=== PATIENT | female | born 1975 | race Caucasian/White ===

== ENCOUNTER 2017-12-04 19:45 | Emergency (ER) | payer BC, SELFPAY ==
[2017-12-04 19:55] VITALS: O2SAT 98
[2017-12-04] MEDS ORDERED: MORPHINE SULFATE 10 MG/ML IM ONE (20:15)
[2017-12-04] MEDS ORDERED: Phenergan 25 MG INJ IM ONE (20:15)
[2017-12-04] MEDS ORDERED: Phenergan 25 MG INJ ONE (20:32)
[2017-12-04] MEDS ORDERED: MORPHINE SULFATE 10 MG/ML ONE (20:33)
[2017-12-04] MEDS ORDERED: Zofran 4 MG/2 ML VIAL IV ONE (20:58)
[2017-12-04] MEDS ORDERED: MORPHINE SULFATE 4 MG INJ IV ONE (20:59)
--- NOTE | 2017-12-04 21:48 | ERPHSYRPT ---
- History of Present Illness Time Seen by Provider: 12/04/17 20:10 Source: patient Patient Subjective Stated Complaint: Left Knee Pain Triage Nursing Assessment: Pt presents to the ED with complaints of left knee pain and fall. Pt states she was on med-surg unit in hospital when she fell. PT states she stood up, left knee popped and "gave out." Pt denies hx of complaints. No deformity noted, skin PWD. Pt denies LOC, denies other pain or complaints from fall. Physician History: PATIENT STATES WHILE STANDING HER LEFT KNEE GAVE OUT, FELL TO FLOOR ONTO BUTTOCKL, DENIES ASSOCIATED HEAD, NECK OR BACK PAIN. HAS SEVERE KNEE PAIN. DENIES FALLING ONTO KNEE. Method of Injury: fell Occurred: just prior to arrival Quality: constant Severity of Pain-Max: moderate Severity of Pain-Current: moderate Lower Extremities Pain: knee: left Modifying Factors: Improves With: movement Associated Symptoms: unable to bear weight Allergies/Adverse Reactions: No Known Drug Allergies Allergy (Unverified 03/19/14 15:38) Hx Tetanus, Diphtheria Vaccination/Date Given: No Hx Influenza Vaccination/Date Given: No Hx Pneumococcal Vaccination/Date Given: No Immunizations Up to Date: No - Review of Systems Constitutional: No Fever, No Chills Musculoskeletal: Injury, Joint Pain - Past Medical History Pertinent Past Medical History: No Neurological History: No Pertinent History ENT History: No Pertinent History Cardiac History: No Pertinent History Respiratory History: No Pertinent History Endocrine Medical History: Other Musculoskeletal History: No Pertinent History GI Medical History: No Pertinent History History: No Pertinent History Psycho-Social History: No Pertinent History Female Reproductive Disorders: Other Other Medical History: POLYCYSTIC DISEASE. INSULIN RESISTANCE DIABETES - Past Surgical History Past Surgical History: Yes Neuro Surgical History: No Pertinent History Cardiac: No Pertinent History Respiratory: No Pertinent History Gastrointestinal: Appendectomy Genitourinary: No Pertinent History Musculoskeletal: No Pertinent History Female Surgical History: No Pertinent History, Tubal Ligation Other Surgical History: TONSILECTOMY - Social History Smoking Status: Never smoker Exposure to second hand smoke: No Drug Use: none Patient Lives Alone: No - Female History Hx Last Menstrual Period: 11/27/2017 Hx Now: No - Nursing Vital Signs Nursing Vital Signs: Initial Vital Signs Temperature 97.6 F 12/04/17 19:51 Pulse Rate 92 H 12/04/17 19:51 Respiratory Rate 98 H 12/04/17 19:51 Blood Pressure 145/69 12/04/17 19:51 O2 Sat by Pulse Oximetry 98 12/04/17 19:51 Pain Scale Pain Intensity 7 - Physical Exam General Appearance: mild distress Knees Exam: left knee: joint effusion, soft tissue tenderness (OVER MEDIAL AND LATERAL FEMORAL CONDYLE), other (LIMITED RANGE OF MOTION, NEGATIVE ANTERIOR DRAW SIGN.) Neuro/Tendon Exam: normal sensation SpO2: 98 Oxygen Delivery: Room Air - Radiology Exams Left Knee X-ray Interpretation: Negative, No Fracture (NO DISLOCATION) Ordered Tests: Active Orders 24 hr Category Date Time Status Crutches STAT Care 12/04/17 20:16 Active KNEE (3 VIEWS) Stat Exams 12/04/17 20:37 Taken Medication Summary Discontinued Medications Generic Name Dose Route Start Last Admin Trade Name Freq PRN Reason Stop Dose Admin Morphine Sulfate 8 mg 12/04/17 20:15 12/04/17 20:37 Morphine Sulfate 10 Mg/Ml IM 12/04/17 20:16 8 mg STAT ONE Administration Morphine Sulfate Confirm 12/04/17 20:33 Morphine Sulfate 10 Mg/Ml Administered 12/04/17 20:34 Dose 10 mg .ROUTE .STK-MED ONE Morphine Sulfate 4 mg 12/04/17 20:59 Morphine Sulfate 4 Mg Inj IV 12/04/17 21:00 STAT ONE Ondansetron HCl 4 mg 12/04/17 20:58 Zofran 4 Mg/2 Ml Vial IV 12/04/17 20:59 STAT ONE Promethazine HCl 25 mg 12/04/17 20:15 12/04/17 20:37 Phenergan 25 Mg Inj IM 12/04/17 20:16 25 mg STAT ONE Administration Promethazine HCl Confirm 12/04/17 20:32 Phenergan 25 Mg Inj Administered 12/04/17 20:33 Dose 25 mg .ROUTE .STK-MED ONE - Progress Progress: improved Progress Note: 12/04/17 21:46 ADMINISTERED MORPHINE 8MG/PHENERGAIN 25MG IM - Departure Time of Disposition: 21:50 Departure Disposition: Home Clinical Impression: INTERDERANGEMENT LEFT KNEE Condition: Stable Critical Care Time: No Referrals: BLANCA HOOK [Primary Care Provider] - Additional Instructions: AMBULATE USING CRUTCHES NONWEIGHT BEARING LEFT LEG UNTIL EVALUATED BY PRIMARY CARE PROVIDER. TAKE OVER THE COUNTER MOTRIN FOR PAIN EVERY 6 HOURS NEEDED. NORCO 10/325 EVERY 4 HOURS FOR SEVERE PAIN. APPLY ICE OVER KNEE SWELLING EVERY 4 HOURS, 30 MINUTES FOR 48 HOURS. Prescriptions: Hydrocodone/APAP 10/325 mg [Surveyor 10/325 MG Tablet] 1 tab PO Q4H PRN PRN # 15 tablet MDD 4 PRN Reason: Pain
[2017-12-04 22:18] VITALS: BP 141/86; PULSE 74
--- NOTE | 2017-12-05 08:53 | XRAY ---
Indication: Pain following fall. Comparison: None 3 views of the left knee obtained. No bony, articular, or soft tissue abnormalities.
== END 2017-12-04 22:20 | disposition home or self-care (01) ==
LOC: ED 19:45
DX: M23.92 Unspecified internal derangement of left knee (principal); W18.39XA Other fall on same level, initial encounter
CPT/HCPCS: 73562; 96372; 99284; J2270; J2550

== ENCOUNTER 2017-12-17 17:34 | Observation (INO) | payer BC, SELFPAY ==
[2017-12-17] MEDS ORDERED: BABY ASPIRIN 81 MG CHEW PO ONE (17:45)
[2017-12-17] MEDS ORDERED: NITRO-BID 2% UD PACKETS TOP ONE (17:45)
[2017-12-17] MEDS ORDERED: Pepcid 20 MG VIAL IV ONE ×2 (17:45→18:01)
[2017-12-17 17:54] LABS: BASOPHIL % 0.3 % (0.0-0.4); Basophil (Absolute #) 0.05 (0-0.4); Eosinophil % 1.7 % (0.00-5.0); Eosinophil (Absolute #) 0.27 (0-0.5); Granulocytes % 66.8 % (36.0-66.0); Hematocrit 42.7 % (35-47); Lymphocyte (Absolute #) 3.87 (1.0-4.6); Lymphocytes % 24.2 % (24.0-44.0); Mean Cell Volume 88.6 fl (78-100); Mean Corpuscular Hgb Concent. 32.8 g/dl (32-36); Mean Platelet Volume 10.7 fl (6-9.5); Monocyte (Absolute #) 1.12 (0.0-1.3); Platelet Count 384 K/mm3 (150-450); Red Blood Count 4.82 M/mm3 (4.1-5.4); Red Cell Distribution Width 13.7 % (11.5-14.0)
[2017-12-17] MEDS ORDERED: NITRO-BID 2% UD PACKETS ONE ×2 (18:00→18:01)
[2017-12-17] MEDS ORDERED: BABY ASPIRIN 81 MG CHEW ONE (18:00)
[2017-12-17 18:13] LABS: ALKALINE PHOSPHATASE 172 U/L (38-126); ANION GAP 14.3 MEQ/L (5-15); BLOOD UREA NITROGEN 16 mg/dL (7-17); CHLORIDE 102 mmol/L (98-107); Carbon Dioxide 27 mmol/L (22-30); Creatinine 1 0.85 mg/dL (0.52-1.04); Glucose 130 mg/dL (74-106); Potassium 3.8 mmol/L (3.5-5.1); SGOT/AST 27 U/L (14-36); SGPT/ALT 32 U/L (0-35); SODIUM 139 mmol/L (137-145); Total Protein 6.9 g/dL (6.3-8.2)
--- NOTE | 2017-12-17 18:16 | ERPHSYRPT ---
- History of Present Illness Time Seen by Provider: 12/17/17 17:40 Historian: patient, family () Patient Subjective Stated Complaint: pt reports she was riding in a car and began having chest pain radiaitng to shoulder and jaw-reprots nasuea-denies diaphoresis-reports weakness Triage Nursing Assessment: pt arrived pink warm and [id number] easy and nonlabored-lungs clear-left radial pulse regular and strong Physician History: CC: chest pain Hx: 42 y/o patient of Dr Bee. She was riding in car and had chest pain, tightness, shortness of breath, nausea, sweat, and pain radiating ot her jaw and elbow. The pain is gone now. She has recent indigestion. She had prior tilt table testing. She had abnl EKG but did not know type. No hx of CAD. She is wearing a brace on her left leg after a fall. She took T#3 last night. Pain is now gone. ILL: Insulin resistance, PCO Surg: Tonsils, BTl with LMP 3 weeks ago ALL: None Meds: None Social: Nonsmoker Fam: Grandparents 40, 50's CAD Timing/Duration: today Aspirin Treatment Today: provided by ED Allergies/Adverse Reactions: No Known Drug Allergies Allergy (Verified 12/17/17 17:41) Home Medications: No Reportable Medications [No Reported Medications] 12/17/17 [History] Hx Tetanus, Diphtheria Vaccination/Date Given: No Hx Influenza Vaccination/Date Given: No Hx Pneumococcal Vaccination/Date Given: No Immunizations Up to Date: Yes - Review of Systems Constitutional: Fatigue, Malaise, No Fever, No Chills Eyes: No Symptoms Ears, Nose, & Throat: No Symptoms Respiratory: Dyspnea, No Cough Cardiac: Chest Pain Abdominal/Gastrointestinal: Nausea, No Abdominal Pain, No Vomiting, No Diarrhea Genitourinary Symptoms: No Symptoms Musculoskeletal: No Symptoms Skin: No Rash Neurological: No Headache All Other Systems: Reviewed and Negative - Past Medical History Pertinent Past Medical History: No Neurological History: No Pertinent History ENT History: No Pertinent History Cardiac History: No Pertinent History Respiratory History: No Pertinent History Endocrine Medical History: Other Musculoskeletal History: No Pertinent History GI Medical History: No Pertinent History History: No Pertinent History Psycho-Social History: No Pertinent History Female Reproductive Disorders: Other Other Medical History: POLYCYSTIC DISEASE. INSULIN RESISTANCE DIABETES - Past Surgical History Past Surgical History: Yes Neuro Surgical History: No Pertinent History Cardiac: No Pertinent History Respiratory: No Pertinent History Gastrointestinal: Appendectomy Genitourinary: No Pertinent History Musculoskeletal: No Pertinent History Female Surgical History: No Pertinent History, Tubal Ligation Other Surgical History: TONSILECTOMY - Social History Smoking Status: Never smoker Exposure to second hand smoke: No Drug Use: none Patient Lives Alone: No - Female History Hx Last Menstrual Period: 3 wks ago Hx Now: No - Nursing Vital Signs Nursing Vital Signs: Initial Vital Signs Temperature 98.1 F 12/17/17 17:35 Pulse Rate 78 12/17/17 17:35 Respiratory Rate 18 12/17/17 17:35 Blood Pressure 178/94 12/17/17 17:35 O2 Sat by Pulse Oximetry 98 12/17/17 17:35 Pain Scale Pain Intensity 3 - Physical Exam General Appearance: alert, obese Eye Exam: PERRL/EOMI Ears, Nose, Throat Exam: normal ENT inspection, moist mucous membranes Neck Exam: normal inspection, non-tender, supple Respiratory Exam: normal breath sounds, lungs clear Cardiovascular Exam: regular rate/rhythm, No murmur Gastrointestinal/Abdomen Exam: soft, No tenderness, No distention Extremity Exam: other (left leg brace) Neurologic Exam: alert, oriented x 3, cooperative, sensation nml, No motor deficits Skin Exam: warm, dry, No rash SpO2 Interpretation: normal SpO2: 99 Oxygen Delivery: Room Air - Course Nursing assessment & vital signs reviewed: Yes EKG Interpreted by Me: RATE (86), Sinus Rhythm, Left Bundle Branch Block (age uncertain) - Radiology Exams cxr X-ray Interpretation: Reviewed by me (lobular heart, no consolidation) - CT Exams CTA chest CT Interpretation: Tele-radiologist Report (no pe, no TAD) Ordered Tests: Active Orders 24 hr Category Date Time Status Flash Welder STAT Care 12/17/17 17:45 Active EKG-ER Only STAT Care 12/17/17 17:45 Active EKG-ER Only STAT Care 12/17/17 18:35 Active IV Insertion STAT Care 12/17/17 17:45 Active Pulse Oximetry (ED) STAT Care 12/17/17 17:45 Active CHEST 1 VIEW (PORTABLE) Stat Exams 12/17/17 17:45 Taken CHEST WITH CONTRAST [CT] Stat Exams 12/17/17 18:35 Taken CBC W DIFF Stat Lab 12/17/17 17:45 Completed CMP Stat Lab 12/17/17 17:45 Completed D-DIMER QUANTITATION Stat Lab 12/17/17 17:45 Completed HCG QUALITATIVE,SERUM Stat Lab 12/17/17 17:45 Completed LIPASE Stat Lab 12/17/17 17:45 Completed TROPONIN Q3H Lab 12/17/17 17:45 Completed TROPONIN Q3H Lab 12/17/17 20:30 Received TROPONIN Q3H Lab 12/17/17 23:45 Ordered TROPONIN Q3H Lab 12/18/17 02:45 Ordered TROPONIN Q3H Lab 12/18/17 05:45 Ordered Transfer Order Routine Transfer 12/17/17 Ordered Medication Summary Discontinued Medications Generic Name Dose Route Start Last Admin Trade Name Freq PRN Reason Stop Dose Admin Aspirin 162 mg 12/17/17 17:45 12/17/17 18:08 Baby Aspirin 81 Mg Chew PO 12/17/17 17:46 162 mg STAT ONE Administration Aspirin Confirm 12/17/17 18:00 Baby Aspirin 81 Mg Chew Administered 12/17/17 18:01 Dose 162 mg .ROUTE .STK-MED ONE Famotidine 20 mg 12/17/17 17:45 12/17/17 18:04 Pepcid 20 Mg Vial IV 12/17/17 17:46 20 mg STAT ONE Administration Famotidine Confirm 12/17/17 18:01 Pepcid 20 Mg Vial Administered 12/17/17 18:02 Dose 20 mg IV .STK-MED ONE Nitroglycerin 1 gm 12/17/17 17:45 12/17/17 18:04 Nitro-Bid 2% Ud Packets TOP 12/17/17 17:46 1 gm STAT ONE Administration Nitroglycerin Confirm 12/17/17 18:00 Nitro-Bid 2% Ud Packets Administered 12/17/17 18:01 Dose 1 gm .ROUTE .STK-MED ONE Nitroglycerin Confirm 12/17/17 18:01 Nitro-Bid 2% Ud Packets Administered 12/17/17 18:02 Dose 1 gm .ROUTE .STK-MED ONE Lab/Rad Data: Laboratory Result Diagrams 12/17/17 17:45 12/17/17 17:45 Laboratory Results 0312/17/17 12/17/17 Range/Units 17:45 17:45 17:45 WBC (4.0-10.5) K/mm3 RBC (4.1-5.4) M/mm3 Hgb (12.0-16.0) gm/dl Hct (35-47) % MCV (78-100) fl MCH (26-32) pg MCHC (32-36) g/dl RDW (11.5-14.0) % Plt Count (150-450) K/mm3 MPV (6-9.5) fl Gran % (36.0-66.0) % Lymphocytes % (24.0-44.0) % Monocytes % (0.0-12.0) % Eosinophils % (0.00-5.0) % Basophils % (0.0-0.4) % Basophils # (0-0.4) D-Dimer 596.56 H* (215-500) ng/mL Sodium (137-145) mmol/L Potassium (3.5-5.1) mmol/L Chloride (98-107) mmol/L Carbon Dioxide (22-30) mmol/L Anion Gap (5-15) MEQ/L BUN (7-17) mg/dL Creatinine (0.52-1.04) mg/dL Estimated GFR ML/MIN Glucose (74-106) mg/dL Calcium (8.4-10.2) mg/dL Total Bilirubin (0.2-1.3) mg/dL AST (14-36) U/L ALT (0-35) U/L Alkaline Phosphatase (38-126) U/L Troponin I (0.000-0.034) ng/mL Serum Total Protein (6.3-8.2) g/dL Albumin (3.5-5.0) g/dL Lipase 63 (23-300) U/L Serum , Qual NEGATIVE (Negative) 12/17/17 12/17/17 12/17/17 Range/Units 17:45 17:45 17:45 WBC 16.0 H (4.0-10.5) K/mm3 RBC 4.82 (4.1-5.4) M/mm3 Hgb 14.0 (12.0-16.0) gm/dl Hct 42.7 (35-47) % MCV 88.6 (78-100) fl MCH 29.0 (26-32) pg MCHC 32.8 (32-36) g/dl RDW 13.7 (11.5-14.0) % Plt Count 384 (150-450) K/mm3 MPV 10.7 H (6-9.5) fl Gran % 66.8 H (36.0-66.0) % Lymphocytes % 24.2 (24.0-44.0) % Monocytes % 7.0 (0.0-12.0) % Eosinophils % 1.7 (0.00-5.0) % Basophils % 0.3 (0.0-0.4) % Basophils # 0.05 (0-0.4) D-Dimer (215-500) ng/mL Sodium 139 (137-145) mmol/L Potassium 3.8 (3.5-5.1) mmol/L Chloride 102 (98-107) mmol/L Carbon Dioxide 27 (22-30) mmol/L Anion Gap 14.3 (5-15) MEQ/L BUN 16 (7-17) mg/dL Creatinine 0.85 (0.52-1.04) mg/dL Estimated GFR > 60 ML/MIN Glucose 130 H (74-106) mg/dL Calcium 11.0 H (8.4-10.2) mg/dL Total Bilirubin 0.20 (0.2-1.3) mg/dL AST 27 (14-36) U/L ALT 32 (0-35) U/L Alkaline Phosphatase 172 H (38-126) U/L Troponin I < 0.012 (0.000-0.034) ng/mL Serum Total Protein 6.9 (6.3-8.2) g/dL Albumin 4.0 (3.5-5.0) g/dL Lipase (23-300) U/L Serum , Qual (Negative) - Progress Progress Note: 12/17/17 18:36 No pain. Will repeat EKG. D-dimer elevated and she has risk of PE with obesity, left leg immobilzation. Will get CTA to rule out PE. 12/17/17 20:42 Pt is stable. BP better on NTG paste. She has seen UAP cards in past. Called Dr Bry Castro who reviewed EKG. 2nd troponin pending. If positive he will transfer to . If negative she will stay here for chest pain observation and rule out. Called Dr Melodie Lowry. Discussed with : Delfin Will see patient in: hospital (observation) Counseled pt/family regarding: lab results, diagnosis, need for follow-up, rad results - Departure Time of Disposition: 20:43 Departure Disposition: Observation (Tele) Clinical Impression: Chest pain, rule out acute myocardial infarction, LBBB (left bundle branch block) Condition: Fair Critical Care Time: No
--- NOTE | 2017-12-17 21:25 | XRAY ---
Indication: Chest pain. Comparison: November 08, 2007. Portable chest slightly rotated demonstrating again normal heart and lungs. Bony thorax intact. Same day CT proven hiatal hernia.
--- NOTE | 2017-12-17 21:34 | XRAY ---
Indication: Chest pain. Elevated d-dimer. Multiple contiguous axial images obtained through the chest using 80 cc Isovue 370 contrast and PE protocol. Comparison: None There is satisfactory opacification of the pulmonary arteries to include the lobar and segmental branches. No filling defect or pulmonary embolus. Heart is not enlarged. Aorta is normal in course and caliber. A few tiny mediastinal calcified nodes. No pathologic mediastinal/hilar lymphadenopathy. 5 mm left thyroid nodule/cyst. Moderate size hiatal hernia with partial intrathoracic stomach. Examination of the lung parenchyma hyperinflated. No suspicious pulmonary mass, infiltrate, or effusion. Bony thorax intact. Limited upper abdomen demonstrate mild fatty liver and 12.5 cm borderline splenomegaly. Impression: 1. Negative pulmonary embolus. No acute cardiopulmonary abnormalities. 2. Hiatal hernia with partial intrathoracic stomach. 3. Left thyroid nodule/cyst better evaluated with sonogram if clinically warranted. 4. Fatty liver and borderline splenomegaly. Comment: Preliminary interpretation was made by [facility]. No discrepancy. CTDI 23.69
[2017-12-17] MEDS ORDERED: MAALOX ES 30 ML UNIT DOSE PO PRN (22:51)
[2017-12-17] MEDS ORDERED: Zofran 4 MG/2 ML VIAL IV PRN (22:51)
[2017-12-17] MEDS ORDERED: Pepcid 20 MG PO SCH (22:51)
[2017-12-17] MEDS ORDERED: MILK OF MAGNESIA 30 ML PO PRN (22:51)
[2017-12-17] MEDS ORDERED: NITRO-BID 2% UD PACKETS TOP SCH (22:51)
[2017-12-17] MEDS ORDERED: Senokot-S Tablet PO PRN (22:51)
[2017-12-17] MEDS: TYLENOL 325 MG PO PRN (22:56)
[2017-12-18 00:27] LABS: Risk Ratio 3.5
[2017-12-18] MEDS: TYLENOL 325 MG PO PRN (03:01)
--- NOTE | 2017-12-18 09:45 | PCM.HP ---
History of Present Illness - Chief Complaint Chief Complaint: cp Date: 12/18/17 History of Present Illness: is a 42 year old female. began having sudden onset substernal chest pain radiating to her left jaw. It resolved after aspirin and nitro in ED. She did then experience some pain with swallowing today. She has history of GERD and takes otc Prilosec most days. She has never had endoscopy. She hurt her left knee and has been following with ortho and wearing knee immobilizer she has swelling in the left leg and pain in the calf as well at times when she is on it. - Review of Systems Constitutional: No Fever, No Chills Eyes: No Symptoms Ears, Nose, & Throat: No Symptoms Respiratory: No Cough, No Short Of Breath Cardiac: Chest Pain, No Edema, No Syncope Abdominal/Gastrointestinal: No Abdominal Pain, No Nausea, No Vomiting, No Diarrhea Genitourinary Symptoms: No Dysuria Musculoskeletal: No Back Pain, No Neck Pain Skin: No Rash Neurological: No Dizziness, No Focal Weakness, No Sensory Changes Psychological: No Symptoms Endocrine: No Symptoms Hematologic/Lymphatic: No Symptoms Immunological/Allergic: No Symptoms Medications & Allergies Home Medications: Home Medication List Aspirin EC 81 mg [Ecotrin 81 mg] 81 mg PO DAILY #30 tablet.ec 12/18/17 [Rx ] Hydrocodone/Acetaminophen [Hydrocodone-Acetamin 10-325 mg] 1 tab PO Q4HPRN PRN 12/18/17 [History Confirmed 12/18/17] PANTOPRAZOLE 40 mg Tablet [Protonix 40MG Tablet] 40 mg PO QAM #30 tab [Rx] Allergies/Adverse Reactions: Allergies Allergy/AdvReac Type Severity Reaction Status Date / Time No Known Drug Allergies Allergy Verified 12/18/17 01:30 - Past Medical History Past Medical History: Yes Neurological History: No Pertinent History ENT History: No Pertinent History Cardiac History: No Pertinent History, Other Respiratory History: No Pertinent History Endocrine Medical History: Other Musculoskelatal History: No Pertinent History GI Medical History: No Pertinent History History: No Pertinent History Pyscho-Social History: No Pertinent History Reproductive Disorders: Other Comment: POLYCYSTIC ovary DISEASE. INSULIN RESISTANCE DIABETES. left leg questionable torn ligament - using a splint. pt states that she was dx with a heart arrhythmia (unsure what type) about 13-14 years ago - Female History Hx Last Menstrual Period: 3 weeks ago Are you now?: No - Past Surgical History Past Surgical History: Yes Neuro Surgical History: No Pertinent History Cardiac History: No Pertinent History Respiratory Surgery: No Pertinent History GI Surgical History: Appendectomy Genitourinary Surgical Hx: No Pertinent History Musculskeletal Surgical Hx: No Pertinent History Female Surgical History: No Pertinent History, Tubal Ligation Other Surgical History: . - Social History Smoking Status: Never smoker Exposure to second hand smoke: Yes (as child) Alcohol: None Drug Use: none - Physical Exam Vital Signs: Vital Signs - 24 hr Temp Pulse Pulse Resp BP Pulse Ox 12/18/17 07:15 98 F 64 16 110/68 97 12/18/17 04:00 97.8 F 71 16 106/51 97 12/17/17 23:19 97.8 F 84 18 119/64 96 12/17/17 22:27 78 18 102/62 100 12/17/17 21:42 89 18 103/72 98 12/17/17 20:43 99 12/17/17 19:45 88 16 150/84 98 12/17/17 18:55 80 18 99 12/17/17 18:27 76 18 173/107 98 12/17/17 18:01 99 12/17/17 17:35 98.1 F 83 78 18 178/94 98 General Appearance: no apparent distress, alert, obese Neurologic Exam: alert, oriented x 3, cooperative, normal mood/affect, nml cerebellar function, nml station & gait, sensation nml, No motor deficits Eye Exam: PERRL/EOMI, eyes nml inspection Ears, Nose, Throat Exam: normal ENT inspection, TMs normal, pharynx normal, moist mucous membranes Neck Exam: normal inspection, non-tender, supple, full range of motion Respiratory Exam: normal breath sounds, lungs clear, No respiratory distress Cardiovascular Exam: regular rate/rhythm, normal heart sounds, normal peripheral pulses Gastrointestinal/Abdomen Exam: soft, normal bowel sounds, No tenderness, No mass Back Exam: normal inspection, No CVA tenderness, No vertebral tenderness Extremity Exam: pelvis stable, other (left knee immobilizer in place with 1+ pitting edema and calf tenderness on the left) Skin Exam: normal color, warm, dry, No rash Lymphatic Exam: No adenopathy Results - Labs Lab/Micro Results: Lab Results-Last 24 Hours 12/17/17 12/18/17 12/18/17 Range/Units 23:55 00:05 02:35 Troponin I < 0.012 < 0.012 (0.000-0.034) ng/mL Triglycerides 104 (30-150) mg/dL Cholesterol 150 (50-200) mg/dL LDL Cholesterol 78 (30-100) mg/dL HDL Cholesterol 43 (40-60) mg/dL Heart Disease Risk Ratio 3.5 12/18/17 Range/Units 05:50 Troponin I < 0.012 (0.000-0.034) ng/mL Triglycerides (30-150) mg/dL Cholesterol (50-200) mg/dL LDL Cholesterol (30-100) mg/dL HDL Cholesterol (40-60) mg/dL Heart Disease Risk Ratio - Other Procedures and Tests Respiratory Therapy 12/19/17 05:00 EKG DAILY 12/20/17 05:00 EKG DAILY 12/21/17 05:00 EKG DAILY Assessment/Plan (1) Chest pain, rule out acute myocardial infarction Current Visit: Yes Status: Acute Assessment & Plan: suspected secondary to esophagitis / spasms and her gerd with hiatle hernia normal enzymes. no PE. Code(s): R07.9 - CHEST PAIN, UNSPECIFIED (2) LBBB (left bundle branch block) Current Visit: Yes Status: Acute Assessment & Plan: set up follow up with cardiology at [facility] clinic patient preference Dr. Bry Friedman was contacted by ED who advised observation here and chest pain rule out if second troponin was negative which it was will set up outpatient follow up Code(s): I44.7 - LEFT BUNDLE-BRANCH BLOCK, UNSPECIFIED (3) Hernia, hiatal Current Visit: Yes Status: Acute Assessment & Plan: with severe gerd stop the priolosec otc start protonix daily f/u in office if not improving discussed egd referral Code(s): K44.9 - DIAPHRAGMATIC HERNIA WITHOUT OBSTRUCTION OR GANGRENE (4) Fatty liver Current Visit: Yes Status: Acute Code(s): K76.0 - FATTY (CHANGE OF) LIVER, NOT ELSEWHERE CLASSIFIED (5) Morbid obesity with BMI of 40.0-44.9, adult Current Visit: Yes Status: Chronic Code(s): E66.01 - MORBID (SEVERE) OBESITY DUE TO EXCESS CALORIES; Z68.41 - BODY MASS INDEX (BMI) 40.0-44.9, ADULT (6) Pain of left calf Current Visit: Yes Status: Acute Assessment & Plan: with elevated d-dimer and immobilization check ultrasound rule out dvt ultrasound back negative for dvt per report continue 81 mg aspirin for now pending cardiology evaluation for the lbbb and chest pain Code(s): M79.662 - PAIN IN LEFT LOWER LEG
[2017-12-18] MEDS ORDERED: Ecotrin 325 MG PO SCH (10:00)
--- NOTE | 2017-12-18 11:11 | PCM.DCORD ---
- Discharge Discharge Date: 12/18/17 Disposition: Home, Self-Care Condition: Fair Prescriptions: New Aspirin EC 81 mg [Ecotrin 81 mg] 81 mg PO DAILY #30 tablet.ec PANTOPRAZOLE 40 mg Tablet [Protonix 40MG Tablet] 40 mg PO QAM #30 tab Continue Hydrocodone/Acetaminophen [Hydrocodone-Acetamin 10-325 mg] 1 tab PO Q4HPRN PRN PRN Reason: Pain Follow up with: ALOK LYLES [ACTIVE STAFF] - 1 Week EL TAM MD [CONSULTING PHYSICIAN] - 1 Week
[2017-12-18 11:34] LABS: BASOPHIL % 0.2 % (0.0-0.4); Basophil (Absolute #) 0.02 (0-0.4); Eosinophil % 2.1 % (0.00-5.0); Eosinophil (Absolute #) 0.23 (0-0.5); Granulocyte Absolute (ANC) 7.57 (1.4-6.9); Granulocytes % 68.7 % (36.0-66.0); Hematocrit 40.5 % (35-47); Hemoglobin 13.1 gm/dl (12.0-16.0); Lymphocyte (Absolute #) 2.59 (1.0-4.6); Lymphocytes % 23.5 % (24.0-44.0); Mean Corpuscular Hemoglobin 29.1 pg (26-32); Mean Corpuscular Hgb Concent. 32.3 g/dl (32-36); Mean Platelet Volume 10.9 fl (6-9.5); Monocyte (Absolute #) 0.61 (0.0-1.3); Monocytes % 5.5 % (0.0-12.0); Platelet Count 322 K/mm3 (150-450); Red Cell Distribution Width 13.8 % (11.5-14.0)
[2017-12-18 11:55] VITALS: BP 104/61; PULSE 70; O2SAT 96
[2017-12-18 11:56] LABS: ALBUMIN 3.4 g/dL (3.5-5.0); ALKALINE PHOSPHATASE 127 U/L (38-126); ANION GAP 11.3 MEQ/L (5-15); BLOOD UREA NITROGEN 13 mg/dL (7-17); CHLORIDE 105 mmol/L (98-107); Calcium 10.3 mg/dL (8.4-10.2); Carbon Dioxide 30 mmol/L (22-30); Creatinine 1 0.82 mg/dL (0.52-1.04); Glucose 113 mg/dL (74-106); Potassium 3.9 mmol/L (3.5-5.1); SGOT/AST 22 U/L (14-36); SGPT/ALT 27 U/L (0-35); SODIUM 141 mmol/L (137-145); Total Protein 6.2 g/dL (6.3-8.2)
--- NOTE | 2017-12-18 16:56 | XRAY ---
Indication: Left leg edema. Two-dimensional sonogram and color Doppler imaging of the major venous vessels of the left leg was performed. Comparison: None No thrombus seen in the examined deep venous vessels of the left leg including greater saphenous vein. Veins demonstrate normal compressibility. Venous waveforms are normal with and without augmentation. Impression: Left leg negative for DVT. Comment: Preliminary report was given.
== END 2017-12-18 14:00 | disposition home or self-care (01) ==
LOC: ED 17:34 → MED SURG 22:28
PROVIDERS: ADMIT Family Medicine; ATTEND Family Medicine
DX: R07.9 Chest pain, unspecified (principal); R13.10 Dysphagia, unspecified; K21.9 Gastro-esophageal reflux disease without esophagitis; R22.43 Localized swelling, mass and lump, lower limb, bilateral; M79.662 Pain in left lower leg; Z79.82 Long term (current) use of aspirin; Z79.899 Other long term (current) drug therapy; I44.7 Left bundle-branch block, unspecified; K44.9 Diaphragmatic hernia without obstruction or gangrene; K76.0 Fatty (change of) liver, not elsewhere classified; E66.01 Morbid (severe) obesity due to excess calories; Z68.42 Body mass index [BMI] 45.0-49.9, adult
CPT/HCPCS: 36000; 36415; 71045; 71260; 80053; 80061; 83036; 83690; 83721; 84484; 84703; 85025; 85379; 93005; 93041; 93268; 93971; 96365; 99285; G0378; A9270-GY